=== PATIENT | female | born 1960 | race Caucasian/White ===

== ENCOUNTER 2017-05-02 08:33 | Emergency (ER) | payer OTHER ==
[~2017-05-02] VITALS: Ht 170.2 cm; Wt 108.9 kg
[~2017-05-02 08:33] MED LIST: ACETAMINOPHEN325 M1 PO; ADVIL200 M1 PO; AZITHROMYCIN250 MG PO; BIOTIN5 M1 PO; ENBREL50 MG/1 M1 SUB-Q; FOLIC ACID1 MG PO; GUAIATUSSIN AC10 ML PO; METHOTREXATE2.5 MG PO; MULTI VITAMIN1 EACH PO; VITAMIN D5000 UNIT PO
--- NOTE | 2017-05-02 15:12 | EKG ---
[facility] [address] [place], [place] [address] Signed Sinus bradycardia Otherwise normal ECG No previous ECGs available Confirmed by BETSY ROWLEY MD ([id number] on 05/02/2017 3:11:52 PM Electronically Signed By: BETSY ROWLEY MD 05/02/17 1512 PATIENT NAME: VIKTOR SKINNER Electrocardiogram DATE OF : 64 PHYSICIAN: BETSY ROWLEY MD REPORT #: [id number] REPORT IS CONFIDENTIAL AND NOT TO BE RELEASED WITHOUT AUTHORIZATION
== END 2017-05-02 10:25 | disposition home or self-care (01) ==
LOC: ED 08:33
DX: R07.89 Other chest pain (principal); F06.4 Anxiety disorder due to known physiological condition; I10 Essential (primary) hypertension; Z88.8 Allergy status to other drugs, medicaments and biological substances; Z88.0 Allergy status to penicillin; Z79.899 Other long term (current) drug therapy
CPT/HCPCS: 71020; 80053; 84484; 85025; 85651; 93005; 93010; 96374; 96375; 96376; 99284; J1885; J2060